=== PATIENT | female | born 1955 | race Caucasian/White ===

== ENCOUNTER → 2023-09-05 16:34 | Outpatient (REF) | payer MEDICARE, OTHER, SELFPAY | LOC: RAD 16:34 | PROVIDERS: ATTENDING PHYSICIAN Nurse Practitioner Family | DX: M79.672 Pain in left foot (principal) | CPT/HCPCS: 73630 ==

== ENCOUNTER 2023-11-16 07:45 | Emergency (ER) | payer MEDICARE, OTHER, SELFPAY ==
[2023-11-16 07:46] VITALS: BP 186/81
--- NOTE | 2023-11-16 07:55 | ED.GENMED ---
History of Present Illness
General
Chief Complaint: Fall
Source: patient
Exam Limitations: none
Time Seen by Provider: 11/16/23 07:52
Nursing documentation reviewed up to this point in time: agreed with
History of Present Illness
History of Present Illness:
Patient is a 68-year-old female presents to the emergency department with right ankle pain after miss stepping on the steps of her garage this morning. Patient did fall the ground but was able to get up and able to weight-bear slightly on the right
foot. Patient denies any hip pain. Patient denies any head strike. Patient denies any previous injury to the area. Patient denies any numbness or paresthesias.
Past History
Past History
ED Past Medical History: HTN, Hypercholesterolemia and Other (Hypertension, hyperlipidemia, anxiety)
ED Past Surgical History: Cholecystectomy, Orthopedic, Tonsilectomy and Other
Social History
Tobacco: Smoker
Alcohol: Daily
Living: with family
Family History
Family History: Negative Diabetes, Hypertension or CAD
Review of Systems
Review of Systems
All Other Systems: Not applicable
Phy Exam
Physical Exam
Physical Exam:
Physical Exam
General: No apparent distress, alert and appropriate, well nourished, well hydrated
HENT: Normocephalic, supple
Eyes: Clear sclera, conjuctiva without injection
Neuro: Alert and oriented x 3, CN II - XII intact, no motor focality, no cerebellar dysfunction
Skin: no wounds
Psychiatric: well kept. interactive and cooperative
Extremities: No cyanosis. Good and equal peripheral pulses. Right ankle along the lateral malleolus is tender and swollen. Achilles intact. Medial aspect nontender and swollen. Right foot with no tenderness at the
proximal fifth metatarsal. Right knee nontender. Bilateral hips nontender
Course
Orders/Labs/Results
Orders:
Orders
11/16/23 08:15
Ankle, Right 3 view CR [CR Ankle - Right Min 3 Views *] Urgent
Comment:
Reason For Exam: right ankle pain and swelling after injury
Vital Signs
Initial and Last Documented VS:
Initial Vital Signs
Temp Pulse Resp BP Pulse Ox
99.2 F 76 18 186/81 97
11/16/23 07:46 11/16/23 07:46 11/16/23 07:46 11/16/23 07:46 11/16/23 07:46
Last Documented Vital Signs
Temp Pulse Resp BP Pulse Ox
99.2 F 76 18 186/81 97
11/16/23 07:46 11/16/23 07:46 11/16/23 07:46 11/16/23 07:46 11/16/23 07:46
*Radiology
Radiology exam reviewed: preliminary read by ED provider (Small avulsion fracture of the talus)
*Pulse Oximetry
Patient hypoxic: no
*EKG
Interpreted by ED Provider?: NA
*Manager Education Interpretation
Rate: Manager Education- N/A
*Critical Care Note
Total Time (30-74mins, 75-104mins- exclusive of procedures): Not Applicable
ED Attending Note
-
Portions of this chart may have been created with voice recognition software.� Occasional wrong word or��sound alike� substitutions may have occurred due to the inherent limitations of voice recognition software.
Discharge Plan
Departure
Patient Disposition: Home (Routine Discharge)
Date of Disposition: 11/16/23
Time of Disposition: 09:32
Patient with high blood pressure during this ER visit?: Yes
Condition: Good
Covid-19: Not Applicable
Discharge Problem:
Ankle fracture
Instructions: Ankle Fracture ED, BLOOD PRESSURE, RICE Therapy
Prescriptions:
No Action
multivitamin 1 EACH tablet
1 ea PO DAILY
aspirin [Aspir-Low] 81 MG tablet,delayed release (DR/EC)
81 mg PO DAILY
tramadol 50 MG tablet
50 mg PO PRN PRN (Reason: pain)
gabapentin 300 MG capsule
900 mg PO DAILY
omeprazole 20 MG capsule,delayed release(DR/EC)
20 mg PO DAILY
fluticasone propionate 1 SPRAY spray,suspension
1 spray intranasal PRN PRN (Reason: allergies)
sertraline 50 MG tablet
150 mg PO DAILY
Lactobacillus acidophilus 0.5 MG tablet
1 tab PO DAILY
Rexulti
1 tab PO DAILY
amlodipine
1 tab PO DAILY
metoprolol succinate 25 MG tablet extended release 24 hr
25 mg PO DAILY
doxycycline hyclate 100 mg capsule
100 mg PO BID 10 Days Qty: 20 0RF
prednisone 10 mg tablet
10 mg PO DIRECTED Qty: 20 0RF
Rx Instructions:
4 tabs day 1, 1 less tablet every other day until gone
Referrals:
Lani Monae CRNP [Family Provider] - Follow up in 5-7 days
Rajan Tavera MD [Active] - Call in 1-3 days for appt
Activity Restrictions/Additional Instructions:
Use acetaminophen 650 mg to 1000 mg or ibuprofen 400 mg every 6 hours for pain. Elevate and ice is much as possible.
Interventions
Interventions:
*Risk Screen - Suicide Last Done: 11/16/23 07:46
*General Assessment Last Done: 11/16/23 07:46
*Neglect/Abuse Screening Last Done: 11/16/23 07:46
*ED COVID-19 Vaccine History Last Done: 11/16/23 07:46
ED-Musculoskeletal Assessment Last Done: 11/16/23 08:16
ED- Neurological Assessment Last Done: 11/16/23 08:16
ED-Skin Assessment Last Done: 11/16/23 08:16
Discharge Date and Time
Print Language: M[place]GR[place]
[2023-11-16 09:15] VITALS: BP 135/67
== END 2023-11-16 10:00 | disposition home or self-care (01) ==
LOC: EMR 07:45
PROVIDERS: EMERGENCY PHYSICIAN Emergency Medicine; FAMILY PHYSICIAN Nurse Practitioner Family
DX: S92.191A Other fracture of right talus, initial encounter for closed fracture (principal); M25.471 Effusion, right ankle; W10.9XXA Fall (on) (from) unspecified stairs and steps, initial encounter; Y92.008 Other place in unspecified non-institutional (private) residence as the place of occurrence of the external cause; I10 Essential (primary) hypertension; E78.00 Pure hypercholesterolemia, unspecified; F41.9 Anxiety disorder, unspecified; F17.210 Nicotine dependence, cigarettes, uncomplicated; Z90.49 Acquired absence of other specified parts of digestive tract
CPT/HCPCS: 99283; 73610

== ENCOUNTER → 2024-01-11 11:40 | Outpatient (REF) | payer MEDICARE, OTHER, SELFPAY | LOC: RAD 11:40 | PROVIDERS: ATTENDING PHYSICIAN Nurse Practitioner Family | DX: M25.512 Pain in left shoulder (principal) | CPT/HCPCS: 73030 ==

== ENCOUNTER 2024-03-09 14:37 | Emergency (ER) | payer MEDICARE, OTHER, SELFPAY ==
[2024-03-09 14:40] VITALS: BP 172/85
[2024-03-09 15:17] LABS: % Basophils 0.6 % (0-2); % Eosinophils 2.3 % (0-6); % Immature Granulocytes 0.3 % (0-0.5); % Lymphocytes 26.9 % (20.5-51.1); % Monocytes 8.7 % (1.7-9.3); % Neutrophils 61.2 % (42.2-75.2); Absolute Basophils 0.1 10^3/uL (0-0.2); Absolute Eosinophils 0.2 10^3/uL (0-0.7); Absolute Lymphocytes 2.6 10^3/uL (1.2-3.4); Absolute Monocytes 0.8 10^3/uL (0.1-0.6); Absolute Neutrophils 5.8 10^3/uL (1.4-6.5); Hematocrit 36.2 % (37.0-47.0); Hemoglobin 12.4 g/dL (12.0-16.0); Mean Corp Hgb Conc. 34.3 g/dL (33.0-37.0); Mean Corpuscular Hgb 28.7 pg (27.0-31.0); Mean Corpuscular Volume 83.8 fL (81.0-99.0); Mean Platelet Volume 10.9 fL (7.4-10.4); Nucleated Red Blood Cells % 0 %; Platelet Count 190 10^3/uL (130-400); Red Blood Cell Count 4.32 10^6/uL (4.20-5.40); Red Cell Dist. Width 13.8 % (11.5-14.5); White Blood Cell Count 9.5 10^3/uL (4.8-10.8)
[2024-03-09 15:42] LABS: ALT (SGPT) 22 U/L (0-35); AST (SGOT) 23 U/L (14-36); Alkaline Phosphatase 88 U/L (38-126); Blood Urea Nitrogen 22 mg/dl (7-17); Calcium 9.4 mg/dl (8.4-10.2); Carbon Dioxide 25 mmol/L (22-30); Chloride 104 mmol/L (98-107); Glucose 102 mg/dl (70-99); Potassium 4.8 mmol/L (3.5-5.1); Sodium 137 mmol/L (135-145); Total Bilirubin 0.6 mg/dl (0.2-1.3); Total Protein 6.2 g/dl (6.3-8.2); eGFR 44.51
[2024-03-09 16:13] VITALS: BP 144/77
[2024-03-09 16:14] VITALS: BMI 28.7
--- NOTE | 2024-03-09 16:20 | ED.GENMED ---
History of Present Illness
General
Chief Complaint: Dizziness
Source: patient
Time Seen by Provider: 03/09/24 15:58
History of Present Illness
History of Present Illness:
68yoF with a history of hypertension, hyperlipidemia, trigeminal neuralgia, and tobacco use (1/2ppd) presenting for evaluation of dizziness x 1 week. Patient describes her dizziness as feeling off balance. She denies it feeling like the room is
spinning but she states it feels like the room is moving from side to side. Symptoms seem to be worse in the mornings and gradually improve over several hours. Dizziness seems to be worse with head movement. She is also having bilateral tinnitus
which she describes as pulsating as well as a headache. She reports nausea but denies any vomiting. She had vertigo in the past and states that her current symptoms are not as severe as that. She was seen at urgent care and sent to the ED for
evaluation. She denies any fevers, chills, chest pain, shortness of breath, visual changes, paresthesias, weakness.
Past History
Past History
ED Past Medical History: HTN, Hypercholesterolemia and Other (Hypertension, hyperlipidemia, anxiety)
ED Past Surgical History: Cholecystectomy, Orthopedic, Tonsilectomy and Other
Social History
Tobacco: Smoker
Alcohol: Daily
Living: with family
Family History
Family History: Negative Diabetes, Hypertension or CAD
Phy Exam
General Physical Exam
General Presentation: well appearing and no apparent distress
General age: appears stated age
General Skin: warm and dry
General Habitus: normal
General Mental: alert
ENT Exam
ENT Exam: TM's normal, pharynx normal and normocephalic
Eye Exam
Eye Exam: PERRL, EOMI, conjunctiva normal and visual clifford normal
Cardiovascular Exam
Cardiovascular Exam: regular rate/rhythm
Pulmonary Exam
Pulmonary Exam: lungs clear, no respiratory distress, no rales, no crackles, no rhonchi and no wheezing
Neurological Exam
Neurological Exam: alert, no motor deficits and other (CN 2-12 intact. PERRL. EOMs intact. 5/5 strength and gross sensation intact in all extremities. Negative drift x4. Normal finger to nose and heel to ye bilaterally. +Mild difficulty with
tandem gait. )
Sole Coma Scale
Eye Opening: Spontaneous
Verbal Response: Oriented
Motor Response: Obeys Commands
GCS Total Score: 15
Skin Exam
Skin Exam: normal color and warm/dry
Psychiatric Exam
Psychiatric Exam: normal mood/affect
Course
Orders/Labs/Results
Orders:
Orders
03/09/24 15:11
CMP [Comprehensive Metabolic Panel] Urgent
Complete Blood Count/With Diff Urgent
03/09/24 16:13
CT Head & Neck Angio W/wo IV Urgent
Comment:
Reason For Exam: Dizziness, pulsatile tinnnitus
0.9% Sodium Chloride 1000 ml [Nss] 1,000 ml IV BOLUS
Meclizine [Antivert] 25 mg PO NOW STA
03/09/24 16:30
Pt Eval And Treat Urgent
Treatment: vestibular
Activity Level: Out of Bed- Ad Sarah
Abnormal Lab Results
03/09/24
15:11
Hct 36.2 L %
(37.0-47.0)
MPV 10.9 H fL
(7.4-10.4)
Absolute Monos (auto) 0.8 H 10^3/uL
(0.1-0.6)
BUN 22 H mg/dl
(7-17)
Creatinine 1.3 H mg/dL
(0.6-1.0)
Glucose 102 H mg/dl
(70-99)
Total Protein 6.2 L g/dl
(6.3-8.2)
03/09/24 15:11
03/09/24 15:11
Vital Signs
Initial and Last Documented VS:
Initial Vital Signs
Temp Pulse Resp BP Pulse Ox
98.6 F 70 18 172/85 97
03/09/24 14:40 03/09/24 14:40 03/09/24 14:40 03/09/24 14:40 03/09/24 14:40
Last Documented Vital Signs
Temp Pulse Resp BP Pulse Ox
98.6 F 62 15 144/77 97
03/09/24 14:40 03/09/24 16:45 03/09/24 16:45 03/09/24 16:13 03/09/24 14:40
MDM/Problems Addressed
Differential Diagnosis Includes:
68yoF here with dizziness x 1 week. Describes as feeling off balance. Associated with a headache and tinnitus. Sent here by urgent care. VSS. She is well appearing in no distress. Patient has mild difficulty with tandem gait. Otherwise no focal
neurologic deficits or ataxia noted. Differential diagnosis includes but is not limited to: BPPV, M�ni�re's, vestibular neuronitis, labyrinthitis, CVA, nonspecific dizziness
Initial ED plan: Lab work obtained in triage which is overall unremarkable other than a mildly elevated creatinine of 1.3. Will consult PT for vestibular evaluation and obtain CTA head/neck. Meclizine and fluid bolus for symptoms.
*Critical Care Note
Total Time (30-74mins, 75-104mins- exclusive of procedures): Not Applicable
Update Note
Update Note:
CTA head/neck negative for acute findings. Specifically, there is no large vessel occlusion noted. Patient did well with physical therapy and symptoms were unable to be reproduced with [place]. PT recommending discharge with outpatient
vestibular therapy. Patient feeling improved on reassessment after receiving meclizine. She is ambulating independently. She is stable for discharge. Prescription provided for meclizine. Advised f/u with PCP and ED return precautions discussed. She
expressed understanding and is agreeable to plan. She was discharged in stable condition.
ED Attending Note
-
Portions of this chart may have been created with voice recognition software.� Occasional wrong word or��sound alike� substitutions may have occurred due to the inherent limitations of voice recognition software.
Discharge Plan
Departure
Patient Disposition: Home (Routine Discharge)
Date of Disposition: 03/09/24
Time of Disposition: 18:38
Patient with high blood pressure during this ER visit?: Yes
Discharge Problem:
Dizziness
Instructions: Dizziness
Prescriptions:
New
meclizine 25 mg tablet
25 mg PO TID PRN (Reason: dizziness) Qty: 20 0RF
No Action
multivitamin 1 EACH tablet
1 ea PO DAILY
aspirin [Aspir-Low] 81 MG tablet,delayed release (DR/EC)
81 mg PO DAILY
tramadol 50 MG tablet
50 mg PO PRN PRN (Reason: pain)
gabapentin 300 MG capsule
900 mg PO DAILY
omeprazole 20 MG capsule,delayed release(DR/EC)
20 mg PO DAILY
fluticasone propionate 1 SPRAY spray,suspension
1 spray intranasal PRN PRN (Reason: allergies)
sertraline 50 MG tablet
150 mg PO DAILY
Lactobacillus acidophilus 0.5 MG tablet
1 tab PO DAILY
Rexulti
1 tab PO DAILY
amlodipine
1 tab PO DAILY
metoprolol succinate 25 MG tablet extended release 24 hr
25 mg PO DAILY
doxycycline hyclate 100 mg capsule
100 mg PO BID 10 Days Qty: 20 0RF
prednisone 10 mg tablet
10 mg PO DIRECTED Qty: 20 0RF
Rx Instructions:
4 tabs day 1, 1 less tablet every other day until gone
Referrals:
Lani Monae CRNP [Family Provider] -
Activity Restrictions/Additional Instructions:
Take meclizine as needed for dizziness.
Please follow-up with your family doctor on Monday. You should also call to schedule an appointment with vestibular therapy.
Return to the ER with any new or worsening symptoms.
Interventions
Interventions:
*Risk Screen - Suicide Last Done: 03/09/24 14:46
*General Assessment Last Done: 03/09/24 18:44
*Neglect/Abuse Screening Last Done: 03/09/24 14:46
ED- Fall Risk Assessment Last Done: 03/09/24 18:44
*ED COVID-19 Vaccine History Last Done: 03/09/24 18:44
*Nursing Disposition Last Done: 03/09/24 18:44
ED- Neurological Assessment Last Done: 03/09/24 17:28
ED- Cardiac Assessment Last Done: 03/09/24 18:45
Discharge Date and Time
Discharge Date/Time: 03/09/24 18:46
Print Language: YI
[2024-03-09] MEDS: ANTIVERT 25 MG PO (16:26)
[2024-03-09] MEDS: NSS 1000 IV (16:27)
[2024-03-09 17:26] VITALS: PULSE 62
== END 2024-03-09 18:46 | disposition home or self-care (01) ==
LOC: EMR 14:37
PROVIDERS: Emergency Medicine; EMERGENCY PHYSICIAN Emergency Medicine; FAMILY PHYSICIAN Nurse Practitioner Family
DX: R42 Dizziness and giddiness (principal); H93.A3 Pulsatile tinnitus, bilateral; I10 Essential (primary) hypertension; E78.00 Pure hypercholesterolemia, unspecified; F17.210 Nicotine dependence, cigarettes, uncomplicated
CPT/HCPCS: 96360; 99284; 70496; 70498; 80053; 85025; Q9967

== ENCOUNTER → 2024-07-11 12:44 | Outpatient (REF) | payer MEDICARE, OTHER, SELFPAY | LOC: HWRAD 12:44 | PROVIDERS: ATTENDING PHYSICIAN Internal Medicine Critical Care Medicine; FAMILY PHYSICIAN Nurse Practitioner Family | DX: F17.210 Nicotine dependence, cigarettes, uncomplicated (principal) | CPT/HCPCS: 71271 ==

== ENCOUNTER → 2024-11-11 07:23 | Outpatient (REF) | payer MEDICARE, OTHER, SELFPAY | LOC: RCS 07:23 | PROVIDERS: ATTENDING PHYSICIAN Internal Medicine Cardiovascular Disease; FAMILY PHYSICIAN Nurse Practitioner Family | DX: I25.10 Atherosclerotic heart disease of native coronary artery without angina pectoris (principal); R06.09 Other forms of dyspnea | CPT/HCPCS: 78452; 93017; A9500; J2785 ==

== ENCOUNTER → 2024-11-20 08:15 | Outpatient (REF) | payer MEDICARE, OTHER, SELFPAY ==
[2024-11-20 09:02] LABS: Hematocrit 36.2 % (37.0-47.0); Hemoglobin 12.0 g/dL (12.0-16.0); Mean Corp Hgb Conc. 33.1 g/dL (33.0-37.0); Mean Corpuscular Volume 87.2 fL (81.0-99.0); Nucleated Red Blood Cells % 0 %; Platelet Count 199 10^3/uL (130-400); Red Cell Dist. Width 12.7 % (11.5-14.5)
[2024-11-20 09:41] LABS: ALT (SGPT) 21 U/L (0-35); AST (SGOT) 22 U/L (14-36); Albumin 4.0 g/dl (3.5-5.0); Alkaline Phosphatase 86 U/L (38-126); Blood Urea Nitrogen 24 mg/dl (7-17); Calcium 9.6 mg/dl (8.4-10.2); Carbon Dioxide 24 mmol/L (22-30); Chloride 109 mmol/L (98-107); Glucose 93 mg/dl (70-99); Potassium 4.9 mmol/L (3.5-5.1); Sodium 139 mmol/L (135-145); Total Protein 6.1 g/dl (6.3-8.2); eGFR 32.06
[2024-11-20 09:42] LABS: ALT (SGPT) 21 U/L (0-35); AST (SGOT) 23 U/L (14-36); Albumin 4.1 g/dl (3.5-5.0); Alkaline Phosphatase 85 U/L (38-126); Blood Urea Nitrogen 23 mg/dl (7-17); Calcium 9.6 mg/dl (8.4-10.2); Carbon Dioxide 24 mmol/L (22-30); Chloride 111 mmol/L (98-107); Glucose 93 mg/dl (70-99); HDL Cholesterol 50 mg/dl; LDL Cholesterol, Calculated 106 mg/dl; Magnesium 2.1 mg/dl (1.6-2.3); Potassium 4.7 mmol/L (3.5-5.1); Sodium 140 mmol/L (135-145); Total Protein 6.3 g/dl (6.3-8.2); Very Low Density Lipoprotein 24 mg/dl (0-30); eGFR 32.06
[2024-11-20 10:07] LABS: Glycohemoglobin (HgbA1c) 5.6 % (4.0-5.6)
== END ==
LOC: REG 08:15
PROVIDERS: ATTENDING PHYSICIAN Nurse Practitioner Family; OTHER PHYSICIAN Internal Medicine Cardiovascular Disease
DX: E11.9 Type 2 diabetes mellitus without complications (principal); I10 Essential (primary) hypertension; I73.9 Peripheral vascular disease, unspecified
CPT/HCPCS: 36415; 80053; 80061; 83036; 83735; 84443; 85025

== ENCOUNTER → 2024-11-21 13:46 | Outpatient (REF) | payer MEDICARE, OTHER, SELFPAY | LOC: RAD 13:46 | PROVIDERS: ATTENDING PHYSICIAN Internal Medicine Cardiovascular Disease; FAMILY PHYSICIAN Nurse Practitioner Family | DX: I73.9 Peripheral vascular disease, unspecified (principal) | CPT/HCPCS: 93922; 93925 ==

== ENCOUNTER → 2025-01-27 08:58 | Outpatient (REF) | payer MEDICARE, OTHER, SELFPAY | LOC: RAD 08:58 | PROVIDERS: ATTENDING PHYSICIAN Internal Medicine; FAMILY PHYSICIAN Nurse Practitioner Family | DX: N17.9 Acute kidney failure, unspecified (principal); I10 Essential (primary) hypertension | CPT/HCPCS: 76770 ==

== ENCOUNTER → 2025-02-03 07:44 | Outpatient (REF) | payer MEDICARE, OTHER, SELFPAY | LOC: RAD 07:44 | PROVIDERS: ATTENDING PHYSICIAN Internal Medicine; FAMILY PHYSICIAN Nurse Practitioner Family | DX: N17.9 Acute kidney failure, unspecified (principal); I10 Essential (primary) hypertension | CPT/HCPCS: 93975 ==

== ENCOUNTER → 2025-05-14 14:25 | Outpatient (REF) | payer MEDICARE, OTHER, SELFPAY | LOC: RAD 14:25 | PROVIDERS: ATTENDING PHYSICIAN Internal Medicine; FAMILY PHYSICIAN Nurse Practitioner Family | DX: R60.0 Localized edema (principal) | CPT/HCPCS: 93970 ==